=== PATIENT | female | born 1995 | race Caucasian/White ===

== ENCOUNTER 2023-11-11 16:28 | Outpatient (CLI) | payer OTHER, SELFPAY ==
--- NOTE | 2023-11-12 14:38 | PC.OBNST ---
NST Note NST Note Start: 11/11/23 16:42 Freq: ONCE Status: Discharge Protocol: Document 11/11/23 17:45 [facility]NA (Rec: 11/11/23 18:10 [facility]NA Desktop) NST Note 1 Para (# of births) 0 EDC 01/23/24 Gestational Age In Weeks & Days 29 Weeks & 4 Days Patient Presented with Complaint(s) of Decreased movement Reactive Yes Appropriate for Gestational Age Yes RN Rao Meyer RN Date 11/11/23 Reactive Yes Appropriate for Gestational Age Yes RN Brooklyn Rivera RN Date 11/11/23 OB NST charge Yes Complete NST Note via Write Note Yes The provider's electronic signature indicates the NST is reactive/appropriate for gestational age. *Note to provider: If an addendum is required, open the patient's chart and click on the note under the Nurse/Allied Health tab.
== END 2023-11-11 17:45 | disposition home or self-care (01) ==
LOC: OB OUT 16:28 → OB 16:29
PROVIDERS: PCP Family Medicine; Visit Provider Surgery
DX: O36.8130 Decreased fetal movements, third trimester, not applicable or unspecified (principal); Z3A.29 29 weeks gestation of pregnancy
CPT/HCPCS: 59025; G0463

== ENCOUNTER 2024-01-04 06:40 | Inpatient (IN) | payer OTHER, SELFPAY ==
[2024-01-04] VITALS (63 sets, daily range): BP systolic 110–162; BP diastolic 65–86; PULSE 80–148; RESP 16–25; TEMP 36.6–37; O2SAT 88–100; BMI 33.5
[2024-01-04 06:32] LABS: Amnisure Rom* POSITIVE
[2024-01-04 08:16] LABS: Basophils Percent Auto 0.4 % (0.0-3.0); Eosinophils Percent Auto 1.4 % (0.0-7.0); Hematocrit 38.8 % (33.0-51.0); Hemoglobin* 13.1 gm/dL (12.0-16.0); Immature Granulocytes Pct Auto 3.5 %; Lymphocytes Percent Auto 16.5 % (20-44); Mean Corpuscular HGB Conc 34 gm/dL (32-36); Mean Corpuscular Hemoglobin 32 pg (26-34); Mean Corpuscular Volume 96 fL (80-100); Monocytes Percent Auto 5.7 % (0.0-11.0); Neutrophils Percent Auto 72.5 % (42.0-72.0); Platelet Count* 254 K/uL (140-440); RDW Coefficient of Variation % 12.6 % (11.5-15.5); Red Blood Count 4.05 m/uL (4.00-5.20); White Blood Count* 13.27 K/uL (4.50-11.00)
[2024-01-04 08:42] LABS: Slide Review Reflex No
--- NOTE | 2024-01-04 09:22 | P.OBHP_ITS ---
OB - H&P: HPI Labor/Induction History of Present Illness Time Seen by Provider: 09:45 Date Seen: 01/04/24 Chief Complaint: The patient is a 28 year old 1 para 0 at 37 2/7 weeks gestation by LMP c/w 8wk US, who presents with SROM. Chief complaint: Maternity : 1 Para: 0 Date of last menstrual period: 04/18/23 Estimated date of delivery: 01/23/24 Gestational age based on last menstrual period: 37 Narrative: Tigist Mancini is a 28 year old 1 para 0 at 37 2/7 weeks gestation by LMP c/w 8wk US, who presents with SROM. SROM with clear fluid occurred at home around 0420am today. She reports she started amita about 45 minutes later. She reports feeling well otherwise, no recent illness. No headaches or vision changes. She reports has been uncomplicated so far. She presented to [facility] 540am and cervix checked by RN 1.5/50/-3. Initially contractions were every 4-5 minutes on monitor, then increased to every 1-3 minutes and then spread out to 9+ minutes apart. History of Present Dating criteria: based on LMP care: good care Labs Blood type: O (+) positive Rubella: immune RPR/VDLR: nonreactive GBS status: negative HBsAG: negative Meds Home Medications and Allergies Home Medications ?Medication ?Instructions ?Recorded ?Confirmed ?Type albuterol sulfate 90 mcg/actuation 1 - 2 puff inhalation Q4H PRN 01/04/24 01/04/24 History aerosol inhaler (Ventolin HFA) wheezing cetirizine 10 mg tablet (24Hour 10 mg PO DAILY PRN 01/04/24 01/04/24 History Allergy) escitalopram oxalate 10 mg tablet 10 mg PO DAILY 01/04/24 01/04/24 History labetalol 100 mg tablet 100 mg PO BID 01/04/24 01/04/24 History vitamin no.167-folic acid tab PO 01/04/24 History 400 mcg-dha 25 mg chewable tablet (One-A-Day ) Allergies Allergy/AdvReac Type Severity Reaction Status Date / Time Sulfa (Sulfonamide Allergy Intermediate Abdominal Verified 01/04/24 05:58 Antibiotics) Pain OB - H&P: Exam Physical Exam: Vital signs: Temp Pulse Resp BP Pulse Ox 98 F 87 16 138/72 98 01/04/24 08:29 01/04/24 08:29 01/04/24 08:29 01/04/24 08:29 01/04/24 07:24 Constitutional: Constitutional: no acute distress and cooperative Routine HEENT Exam: Head: Present atraumatic Eye: Present normal appearance ENT: Present mucous membranes moist Routine Respiratory Exam: Respiratory: Present CTA bilaterally Routine Cardiovascular Exam: Cardiovascular: RRR Routine Exam: Perineum Description: Normal Detailed Labor and Delivery Exam: Patient Gravid: Yes Dilation (cm): 2 Effacement (%): 60 Cervix position: mid Consistency: medium Fetus (Single): Station: -1 Amniotic Membrane Status: SROM Amniotic Membrane Fluid Description: Clear Heart Rate Baseline: 140 Monitor Accelerations: Present Monitor Decelerations: None Long-Term Variability: Moderate (6-25) Routine Extremities Exam: Extremities: Absent pedal edema OB - Results Labs Labs: Short CBC 01/04/24 Range/Units 08:10 WBC 13.27 H (4.50-11.00) K/uL Hgb 13.1 (12.0-16.0) gm/dL Hct 38.8 (33.0-51.0) % Plt Count 254 (140-440) K/uL OB - Problem Based A/P Additional Plan (1) Term : Status: Acute (2) SROM (spontaneous rupture of membranes): Status: Acute Plan Cervix remains unfavorable and contractions spreading out now 5+ hours since SROM. Will give dose of cytotec. Discussed with pt, all ?'s answered. Known GBS negative. Delivery/Labor/Induction Plan Induction method: per misoprostol protocol
[2024-01-04] MEDS: miSOPROStoL 25 MCG/0.25 TABLET PO (10:00)
[2024-01-04] MEDS: CALCIUM CARBONATE 500 MG CHEW PO (12:11)
[2024-01-04] MEDS: LACTATED RINGERS 1000 ML 1,000 ML 999 ML IV (12:19)
[2024-01-04] MEDS: OXYTOCIN 30 unit/500 ML in NS 30 UNIT/500 ML BAG 300 UNIT IVPB (14:46)
--- NOTE | 2024-01-04 16:05 | W.PM.VAGDEL1 ---
Procedure Delivery date: 01/04/24 Procedure Done: only Procedure Details: The patient is a 28 year-old admitted on 01/04/24 at 37 Weeks, 2 Days gestation for SROM.? Cervical exam on admission was 1.5 cm/50 % effaced/-3 station with membranes ruptured in vertex presentation.? Contractions were every 4-6 minutes.? heart rate demonstrated baseline 150 bpm with moderate variability, + accelerations, - decelerations; a category 1 tracing.? SROM occurred at 0420 with clear fluid. She presented to Center 0540 and initially contractions were increasing in frequency but then spread out to q9min so she was given cytotec x 1 oral dose at 10am. ? Labor Analgesia:? None ? Pitocin:? No ? Labor onset:? 1145 ? Complete:? 1324 ? Pushing:? 1340 ? heart tones during second stage were 120's with deep variable decelerations with pushing. Resolved between contractions. ? At 1436 a viable male delivered in vertex presentation over intact perineum via spontaneous vaginal delivery.? Infant was placed on maternal abdomen.? Cord was clamped and cut after a 30-60 second delay.? Nose and mouth were bulb suctioned.? weight 7#6oz.? 7 at 1 minute and 9 at 5 minutes.? Shoulder dystocia: no.? Nuchal cord: no. ? Active management placenta was performed. She had gush of blood with delivery of placenta which quickly improved as placenta delivered. Placenta delivered spontaneously and complete at 1443 with a 3 vessel cord. She did have further bleeding noted from laceration which became hemostatic with repair as below. ? Mother and infant were stable after delivery. ? Lacerations:? 2nd degree midline perineal, repaired with 3-0 Vicryl. Right labial laceration with extension into vagina, repaired with 3-0 Vicryl. ? Blood loss: 450 mL. Blood loss measurement type: QBL ? Sponge and needles counts are correct. Intrapartal Events: Precipitous Labor <3 Hrs Delivery monitor: external FHT and internal FHT Route of delivery: Laceration description: Perineal - 2nd Degree (right labial) Delivery repair: Vicryl Estimated blood loss (mL): 450 Anesthesia type: None Gender: Male presentation: vertex Placental Delivery Description: Spontaneous Cord Description: 3 Vessels
[2024-01-04 17:08] LABS: Hematocrit 38.8 % (33.0-51.0); Hemoglobin* 13.4 gm/dL (12.0-16.0); Mean Corpuscular HGB Conc 35 gm/dL (32-36); Mean Corpuscular Hemoglobin 33 pg (26-34); Mean Corpuscular Volume 95 fL (80-100); Platelet Count* 271 K/uL (140-440)
[2024-01-04] MEDS: IBUPROFEN 600 MG TABLET PO ×2 (17:16→23:51)
[2024-01-04 17:22] LABS: Alanine Aminotransferase* 21 U/L (4-35); Aspartate Amino Transferase* 34 U/L (12-35); Blood Urea Nitrogen* 4 mg/dL (5-24); Creatinine* 0.4 mg/dL (0.5-1.5); Est. Creatinine Clearance* 214.92; Estimated Glomerular Filt Rate 136 ml/min
[2024-01-04 17:24] LABS: Slide Review Reflex Yes; White Blood Count* 28.18 K/uL (4.50-11.00)
[2024-01-04 17:25] LABS: Slide Review Acceptable Review (Acceptable)
[2024-01-04] MEDS: LABETALOL HCL 100 MG TABLET PO (18:28)
[2024-01-04] MEDS: ACETAMINOPHEN 500 MG TABLET 1000 MG PO (20:32)
[2024-01-05] VITALS (22 sets, daily range): BP systolic 106–138; BP diastolic 68–80; PULSE 90–126; RESP 16–20; TEMP 36.5–37.3; O2SAT 98–100
[2024-01-05 00:49] LABS: Hemoglobin* 11.2 gm/dL (12.0-16.0)
[2024-01-05] MEDS: LANOLIN CREAM 1 APPLIC TOPICAL ×2 (01:07→21:46)
[2024-01-05 01:33] LABS: D Dimer Quantitative* 2.41 ug/ml (0.00-0.50)
[2024-01-05 01:39] LABS: NT Pro B Type NatriureticPept* < 20 pg/mL
--- NOTE | 2024-01-05 01:58 | CRLHL7_ITS ---
For Patients: As a result of the 21st Century Cures Act, medical imaging exams and procedure reports are released immediately into your electronic medical record. You may view this report before your referring provider. If you have questions, please contact your health care provider. INDICATION: Shortness of breath. TECHNIQUE: CT chest PE was acquired with 95 cc Isovue 370 IV contrast. COMPARISON: None. FINDINGS: Heart and vasculature: Contrast opacification of the pulmonary arterial tree is adequate. No sign of pulmonary embolism. Heart size is normal. Thoracic aorta and pulmonary artery are normal in caliber. Lungs and pleura: 3 mm right middle lobe nodule (series 6, image 111). No acute infiltrates. No pleural effusions, pleural thickening, or pneumothorax. Lymph nodes/mediastinum: No mediastinal, hilar, or axillary adenopathy. Thyroid gland is unremarkable. Chest wall: No masses. Upper abdomen: No acute findings. Bones: Unremarkable for age. IMPRESSION: 1. No evidence of pulmonary embolism or acute pulmonary process. 2. 3 mm right middle lobe nodule, of doubtful clinical significance. Please see below for follow-up guidelines. SOCIETY GUIDELINES - SOLID NODULES: SINGLE LOW RISK - nodule less than 6 mm: No routine follow-up. - nodule 6-8 mm: CT at 6-12 months, then consider CT at 18-24 months. - nodule greater than 8 mm: Consider CT at 3 months, PET/CT or tissue sampling. SINGLE HIGH RISK - nodule less than 6 mm: Optional CT at 12 months. - nodule 6-8 mm: CT at 6-12 months, then CT at 18-24 months. - nodule greater than 8 mm: Consider CT at 3 months, PET/CT or tissue sampling. MULTIPLE LOW RISK - nodule less than 6 mm: No routine follow-up. - nodule 6-8 mm: CT at 3-6 months, then consider CT at 18-24 months. - nodule greater than 8 mm: CT at 3-6 months, then consider CT at 18-24 months. MULTIPLE HIGH RISK - nodule less than 6 mm: Optional CT at 12 months. - nodule 6-8 mm: CT at 3-6 months, then at 18-24 months. - nodule greater than 8 mm: CT at 3-6 months, then at 18-24 months. Please note that all CT scans at this facility use dose modulation, iterative reconstruction, and/or weight-based dosing when appropriate to reduce radiation dose to as low as reasonably achievable. Dictated by Sven Lambert MD @ 01/05/2024 3:03:15 AM (Electronically Signed)
--- NOTE | 2024-01-05 03:25 | PM.OBPNVD1 ---
OB - PN:Subj Subjective Time Seen by Provider: 03:25 Date Seen: 01/05/24 Interval history: RN notified me at 10:16pm that pts heart rate had been elevated around 110-115 and pt noted some slight dizziness and shortness of breath with ambulation. pt tells me overall she feels tired/weak. Sitting/laying in bed she feels fine. She reports earlier this evening when got up to bathroom felt little dizzy. Not having that now and just got up to bathroom and did not have any dizziness. she does notice 'mild' 'windedness' with activity intermittently. No headaches, no chest pain, no palpitations, no abdominal pain. Reports some rectal pain with certain movements/position changes in bed but fine when laying still and okay once up and walking. No personal or FH blood clot. pt tells me her left leg was slightly swollen compared to right all OB - PN: Obj Exam Physical Exam: Vital signs: Temp Pulse Resp BP Pulse Ox O2 Del Method 98.4 F 103 H 20 120/74 98 Room Air 01/05/24 00:46 01/05/24 00:46 01/05/24 00:46 01/05/24 00:46 01/05/24 00:46 01/05/24 00:46 Constitutional: Constitutional: no acute distress and cooperative Routine HEENT Exam: Head: Present normal inspection Eye: Present normal appearance ENT: Present mucous membranes moist Routine Respiratory Exam: Respiratory: Present CTA bilaterally; Absent crackles or wheezes Comments: good air movement Routine Cardiovascular Exam: Cardiovascular: Present RRR Routine Abdominal Exam: Fundus: Present firm (below umbilicus) Routine Exam: Comments: External vaginal exam with appropriate edema noted along labia/perineal area. I gently palpated perineal/vaginal tear and internal vaginal side campbell with no abnormal tenderness and no evidence hematoma. Routine Extremities Exam: Comments: no pitting edema. Calfs/LE's nttp. OB - PN: Obj Data Labs Labs: Laboratory Results - last 24 hr 01/04/24 01/04/24 01/04/24 05:50 08:10 17:01 WBC 13.27 H 28.18 H* RBC 4.05 4.10 Hgb 13.1 13.4 Hct 38.8 38.8 MCV 96 95 MCH 32 33 MCHC 34 35 RDW Coeff of Avinash 12.6 Plt Count 254 271 Neut % (Auto) 72.5 H Lymph % (Auto) 16.5 L [place] % (Auto) 5.7 Eos % (Auto) 1.4 Baso % (Auto) 0.4 Neut # (Auto) 9.60 H Lymph # (Auto) 2.20 [place] # (Auto) 0.80 Eos # (Auto) 0.20 Baso # (Auto) 0.10 Abs Immat Gran (auto) 0.50 H Imm/Tot Granulo (auto) 3.5 Diff Slide Review Acceptable Review D-Dimer Quant (PE/DVT) BUN 4 L Creatinine 0.4 L Estimated Creat Clear 214.92 Estimated GFR 136 AST 34 ALT 21 NT-Pro-B Natriuret Pep Membrane Rupture POSITIVE Blood Type O Positive Antibody Screen NEGATIVE 01/05/24 01/05/24 00:45 01:05 WBC RBC Hgb 11.2 L Hct MCV MCH MCHC RDW Coeff of Avinash Plt Count Neut % (Auto) Lymph % (Auto) [place] % (Auto) Eos % (Auto) Baso % (Auto) Neut # (Auto) Lymph # (Auto) [place] # (Auto) Eos # (Auto) Baso # (Auto) Abs Immat Gran (auto) Imm/Tot Granulo (auto) Diff Slide Review D-Dimer Quant (PE/DVT) 2.41 H BUN Creatinine Estimated Creat Clear Estimated GFR AST ALT NT-Pro-B Natriuret Pep < 20 Membrane Rupture Blood Type Antibody Screen Imaging CT scan - chest: Radiologist's impression: 1. No evidence PE or acute pulmonary process. 2. 3mm right middle lobe nodule, of doubtful clinical significance. OB - PN: A/P Delivery Assessment and Plan (1) Term : Status: Acute (2) SROM (spontaneous rupture of membranes): Status: Acute (3) Sinus tachycardia: Problem details: HR 110-120's Status: Acute Assessment and Plan: Sinus tachycarda -on chart review, pulse was 80-90's til about 4pm then increased to 92-111 and then further to 100-125. Initial bp's were high (see below) but now bp's wnl and remainder vitals wnl. Review of her record shows pulse typically in 90's at clinic for care, one time was 108 in clinic. Currently on pulseox after testing complete as I am talking with her her pulse is 92-101. -differential diagnosis reviewed with pt. Needed to rule out more serious etiologies such as acute blood loss anemia, cardiomyopathy, PE. These have been ruled out based on above testing results which is reassuring. -will plan to monitor for now. Pulse is currently improved while I am talking with her. Discussed with her if sxs worsening, new sxs, worsening tachycardia, we would rec further evaluation. For now, we can monitor -Of note, she is on betablocker which she takes chronically for migraine prophylaxis and was restarted at 6:30pm 01/05/24 (4) hypertension: Problem details: BP's after delivery 130-150's/80-90's, did go up to 160's but not sustained and came down on own Status: Acute Assessment and Plan: had elevated BP's. Preeclamptic labs wnl. She is on labetalol at home for migraine prophylaxis and this was restarted at 6:30pm on 01/04/24, prior to restarting BP had come down to 130/72 on its own. Will continue labetalol at her home migraine prophylaxis dosing of 100mg bid. Monitor bp and adjust as needed. Plan Comments: See above regarding tachycardia and bp. otherwise plan routine care discussed with pt will have her stay until tomorrow due to these concerns for further monitoring EKG Interpretation EKG Data Attestation: I personally reviewed and interpreted this ECG as follows: Date of EKG Tracin01/05/24 EKG interpretation date: 01/05/24 EKG interpretation time: 00:45 Prior EKG tracings: not available for review Interpretation: Two EKG's were performed by RN. Initial EKG at 0:39:57 was NSR at 96bpm. Intervals with RI 102ms, QRS 80ms, QTc 434ms. No Q waves. T wave nonspecific lead III. 2nd EKG at 0:40:18 with sinus tachycardia at 102bpm. Intervals RI 96ms, QRS 80ms, QTc 448ms. No Q waves. T wave inversion lead III.
[2024-01-05] MEDS: ACETAMINOPHEN 500 MG TABLET 1000 MG PO ×4 (03:44→21:45)
[2024-01-05 06:36] LABS: Hemoglobin* 10.4 gm/dL (12.0-16.0)
[2024-01-05] MEDS: IBUPROFEN 600 MG TABLET PO ×3 (06:41→18:20)
[2024-01-05] MEDS: DOCUSATE SODIUM 100 MG CAPSULE PO (10:14)
--- NOTE | 2024-01-05 14:22 | P.OBPN_ITS ---
OB - PN:Subj Subjective Time Seen by Provider: 10:00 Date Seen: 01/05/24 Interval history: Patient noted to be tachycardic to 1teens-120 overnight. Reported SOB and dizziness. Labs showed mild anemia, Cr and pro-BNP WNL. EKG showed sinus tachycardia. D dimer elevated > CT PE run negative for PE. Hgb 10.4 at 0625 this AM. Narrative: Today patient reports that she is feeling tired, but otherwise well. SOB and diz ziness have improved, though admits she hasn't been up much. Body is a little sore. Bleeding is moderate; same as a heavy period. Perineal pain is well- controlled. Passing flatus, small BM. going ok. OB - PN: Obj Exam Physical Exam: Vital signs: Temp Pulse Resp BP Pulse Ox O2 Del Method 98.0 F 104 H 17 121/79 98 Room Air 01/05/24 12:15 01/05/24 12:15 01/05/24 12:15 01/05/24 12:15 01/05/24 12:15 01/05/24 12:15 Narrative: General appearance: Well-appearing adult female. Alert, oriented and appropriate. Sitting up in hospital bed. HEENT: EOMI, no conjunctival injection or discharge. MMM. Neck: Supple. CV: RRR, no rubs, murmurs or extra heart sounds. Pulm: CTAB, no wheezes, rales or rhonchi. Abdomen: Soft, non-tender. Fundus palpated 2 cm below the umbilicus. MSK: Moving all extremities. Ext: Warm and well-perfused. Trace LE edema. Skin: No rashes appreciated over exposed skin. Neuro: Grossly normal strength and sensation. No focal deficits. Psych: Normal affect. OB - PN: Obj Data Labs Labs: Laboratory Results - last 24 hr 01/04/24 01/05/24 01/05/24 17:01 00:45 01:05 WBC 28.18 H* RBC 4.10 Hgb 13.4 11.2 L Hct 38.8 MCV 95 MCH 33 MCHC 35 Plt Count 271 Diff Slide Review Acceptable Review D-Dimer Quant (PE/DVT) 2.41 H BUN 4 L Creatinine 0.4 L Estimated Creat Clear 214.92 Estimated GFR 136 AST 34 ALT 21 NT-Pro-B Natriuret Pep < 20 01/05/24 06:25 WBC RBC Hgb 10.4 L Hct MCV MCH MCHC Plt Count Diff Slide Review D-Dimer Quant (PE/DVT) BUN Creatinine Estimated Creat Clear Estimated GFR AST ALT NT-Pro-B Natriuret Pep OB - PN: A/P Delivery Assessment and Plan (1) Term : Status: Acute Assessment and Plan: - Normal post- cares - Anticipate discharge tomorrow 01/06/24 (2) SROM (spontaneous rupture of membranes): Status: Acute (3) Sinus tachycardia: Problem details: HR 110-120's. EKG sinus tachycardia. CT PE run negative. BMP, pro-BNP WNL. Hgb 13.4 > 10.4 Status: Acute Assessment and Plan: - Favor related to relative anemia following delivery given otherwise negative work-up - Recheck Hgb in AM (4) hypertension: Problem details: BP's after delivery 130-150's/80-90's, did go up to 160's but not sustained and came down on own Status: Acute
[2024-01-06] MEDS: IBUPROFEN 600 MG TABLET PO ×3 (00:26→17:51)
[2024-01-06 00:27] VITALS: BP 120/69; PULSE 98; RESP 12; TEMP 36.6; O2SAT 97
[2024-01-06] MEDS: ACETAMINOPHEN 500 MG TABLET 1000 MG PO (04:50)
[2024-01-06 04:54] VITALS: BP 130/74; PULSE 74; RESP 16; TEMP 36.7; O2SAT 98
[2024-01-06 07:30] LABS: Hemoglobin* 9.9 gm/dL (12.0-16.0)
[2024-01-06 08:23] VITALS: BP 120/70; PULSE 98; RESP 16; TEMP 36.5; O2SAT 97
[2024-01-06] MEDS: DOCUSATE SODIUM 100 MG CAPSULE PO (10:08)
[2024-01-06] MEDS: LABETALOL HCL 100 MG TABLET PO (10:10)
[2024-01-06 12:39] VITALS: BP 113/69; PULSE 103; PULSE 16; RESP 16; TEMP 36.6; O2SAT 98
[2024-01-06 14:26] LABS: Rapid Plasma Reagin (RPR) Non Reactive (Non Reactive)
--- NOTE | 2024-01-06 15:03 | P.DS_ITS ---
DS: Providers Provider Time Seen by Provider: 07:00 Date Seen: 01/06/24 Date of admission: 01/04/24 06:40 Primary care physician: Jen Bee MD Admitting Clinician: Brandee Liu DO Attending Physician on discharge: Ximena Garza MD Date of Discharge: 01/06/24 DS: Diagnosis Discharge Diagnosis (1) (normal spontaneous vaginal delivery): Status: Acute Problem details: Patient had after spontaneous labor/SROM (2) hypertension: Status: Acute Problem details: BP's after delivery 130-150's/80-90's, did go up to 160's but not sustained and came down on own. BP have been within normal limits in last 12 hours prior to discharge. (3) Sinus tachycardia: Status: Acute Problem details: HR 110-120's. EKG sinus tachycardia. CT PE run negative. BMP, pro-BNP WNL. Hgb 13.4 > 10.4 >9.9. Tachycardia resolved prior to discharge Exam Const: Vital Signs, click to edit/add: Vital Signs - 24 hr 01/05/24 15:29 01/05/24 17:29 01/05/24 21:53 Temperature 97.7 F 99.1 F Pulse Rate [Pulse Oximeter] 102 H 106 H 109 H Pulse Rate [Right] Respiratory Rate 17 18 16 Blood Pressure [Le ft Arm] 122/70 115/70 126/77 Pulse Oximetry 98 98 Oxygen Delivery Me thod Room Air Room Air 01/06/24 00:27 01/06/24 04:54 01/06/24 08:23 Temperature 97.9 F 98.1 F 97.7 F Pulse Rate [Pulse Oximeter] 98 74 98 Pulse Rate [Right] Respiratory Rate 12 16 16 Blood Pressure [Le ft Arm] 120/69 130/74 120/70 Pulse Oximetry 97 98 97 Oxygen Delivery Me thod Room Air Room Air Room Air 01/06/24 12:39 Temperature 97.9 F Pulse Rate [Pulse Oximeter] 103 H Pulse Rate [Right] 16 L Respiratory Rate 16 Blood Pressure [Le ft Arm] 113/69 Pulse Oximetry 98 Oxygen Delivery Me thod Room Air Common normals: no apparent distress, oriented x3 and alert Orientation/consciousness: Yes awake HENMT: Common normals: normocephalic Head and scalp: normocephalic Neck & C-Spine: Common normals: full ROM and no JVD Resp: Common normals: normal respiratory effort, no retractions and clear to auscultation bilaterally Auscultation: clear to auscultation bilaterally Cardio: Common normals: no JVD, regular rate, regular rhythm, S1 normal heart sound, S2 normal heart sound and no murmurs Rate: regular rate Rhythm: regular rhythm Heart sounds: S1 normal and S2 normal GI: Common normals: Normal to inspection, nondistended, normoactive bowel sounds present Extremity: Common normals: normal to inspection and full ROM Neuro: Common normals: oriented x3 Sensorium/orientation: awake and alert Skin: Common normals: no rashes or lesions noted General skin exam: no rashes or lesions noted OB - DS: Summary Hospital Course Hospital Course: The patient is a 28 year old G 1 P 0 at 37 weeks gestation that was admitted to the Center on 01/04/24 for labor. She had an uncomplicated vaginal delivery. She delivered a viable male . She is breast feeding. Patient's course was complicated by maternal tachycardia and hypertension. Is on labetalol at baseline but this is for migraine prevention. She received BNP (normal), CT PE study (normal) and trended hemoglobin (Dropped to 9.9). Fortunately, her tachycardia resolved and patient felt much better on day of discharge. Her bp has been within normal limits on her home Labetalol. Unclear if she has a component of hypertension or not. Peripartum Data delivery method: Vaginal Laceration description: Vaginal - 2nd Degree complications: other (Maternal tachycardia and hypertension) Gender: Male Infant Discharge Plan: Home Status at Discharge Functional status at discharge: independent ambulation Overall status at discharge: patient is back to baseline Time Spent with Patient Time attestation: Total time spent providing and/or coordinating discharge services: Time spent: Greater than 30 minutes Discharge Plan Discharge Disposition: Home, Self-Care Date of Admission: 01/04/24 06:40 Attending Provider on Discharge: Ximena Garza Primary Care Provider: Jen Bee Condition: Improved Anticipated Discharge Date/Time: 01/06/24 14:59 Discharge Medications: Continued albuterol sulfate [Ventolin HFA] 90 mcg/actuation HFA aerosol inhaler 1 - 2 puff INHALATION Q4H PRN (Reason: wheezing) cetirizine [24Hour Allergy] 10 mg tablet 10 mg PO DAILY PRN labetalol 100 mg tablet 100 mg PO BID escitalopram oxalate 10 mg tablet 10 mg PO DAILY One-A-Day 400 mcg- 25 mg tablet,chewable 1 tab PO DAILY Discharge Orders: Discharge Order (Routine); Ordered 01/06/24 Ordered By: Ximena Garza Patient Education: OB Vaginal/Breast Feeding Activity Level: No Restrictions Activity Detail: Pelvic rest x 6 weeks. Nothing in the vagina Discharge Diet: Regular Follow Up Appointments: Jen Bee MD [Primary Care Provider] - [facility] Discharge Comments: Follow up for Blood pressure check at scheduled appointment Friday.
[2024-01-06 17:55] VITALS: BP 125/77; PULSE 96; RESP 16; TEMP 36.5; O2SAT 99
== END 2024-01-06 18:00 | disposition home or self-care (01) | DRG 807 ==
LOC: OB OUT 06:56 → OB 06:56
PROVIDERS: Family Medicine; Admitting Provider Family Medicine; PCP Family Medicine; Visit Provider Family Medicine
DX: O70.1 Second degree perineal laceration during delivery (principal); Z37.0 Single live birth; O62.3 Precipitate labor; O16.5 Unspecified maternal hypertension, complicating the puerperium; O99.893 Other specified diseases and conditions complicating puerperium; R00.0 Tachycardia, unspecified; R06.02 Shortness of breath; R42 Dizziness and giddiness; Z3A.37 37 weeks gestation of pregnancy; O90.81 Anemia of the puerperium; D64.9 Anemia, unspecified
CPT/HCPCS: 36415; 59200; 71275; 82565; 83880; 84112; 84450; 84460; 84520; 85018; 85025; 85027; 85379; 86592; 86850; 86900; 86901; 93005; 93010; A9270; J2371; J7120; Q9967

== ENCOUNTER 2024-01-11 22:28 | Inpatient (IN) | payer OTHER, SELFPAY ==
[2024-01-11] VITALS (30 sets, daily range): BP systolic 128–152; BP diastolic 69–89; PULSE 97–118; RESP 18–20; TEMP 36.9–38.4; O2SAT 92–100
[2024-01-11 17:22] LABS: Hematocrit 32.4 % (33.0-51.0); Hemoglobin* 10.7 gm/dL (12.0-16.0); Mean Corpuscular HGB Conc 33 gm/dL (32-36); Mean Corpuscular Hemoglobin 32 pg (26-34); Mean Corpuscular Volume 98 fL (80-100); Platelet Count* 356 K/uL (140-440); Red Blood Count 3.32 m/uL (4.00-5.20); White Blood Count* 13.49 K/uL (4.50-11.00)
[2024-01-11 17:30] LABS: Slide Review Reflex No
--- NOTE | 2024-01-11 17:33 | P.OBLDTN_ITS ---
OB - Triage/Final Diagnosis Visit Information Date Seen: 01/11/24 Date of evaluation: 01/11/24 Narrative: The patient is a 28 year old 1 para 1 presents on day #7 after with fever, headaches and body aches. course complicated by hypertension and tachycardia. She had a thorough evaluation include negative CT PE (elevated D-dimer) and normal EKG. She was restarted on labetalol 100mg BID for migraine prophylaxis as well as hypertension. Patient has noticed headaches over the last three days primarily at night, not resolved with Tylenol. Seem to be different from her migraines. She woke up today with headache and body aches. She is breast feeding. Denies breast pain or engorgement. Some nipple discomfort. She denies significant pelvic or suprapubic pain. She states lochia/bleeding has lessoned but has stayed constant over the last 1-2 days. She does have some sharp pains in the vagina intermittently. She had perineal laceration and right labial lacerations repaired with vicryl. She denies purulent discharge. She was GBS negative. No history of abdominal surgeries. No cough, sore throat, congestion or sick contacts. Evaluation Vital signs: Vital Signs - 24 hr 01/11/24 16:56 01/11/24 17:01 01/11/24 17:02 Pulse Rate Blood Pressure Pulse Oximetry 100 98 92 01/11/24 17:03 01/11/24 17:06 01/11/24 17:11 Pulse Rate 105 H Blood Pressure 148/83 H Pulse Oximetry 99 99 01/11/24 17:26 Pulse Rate 111 H Blood Pressure 136/86 Pulse Oximetry Comments: Gen: tearful, diaphoretic CV: RRR, no murmurs Resp: Regular rate, normal effort, clear to auscultation in all lung ayala Abdo: overall soft, some discomfort in deep suprapubic area (L>R) : lochia present heavy, laceration repairs healing well, no purulence, tender to the touch Ext: 1-2+ pitting edema in legs bilaterally (L>R). Some posterior calf tenderness. Trace edema in UE as well. Final Diagnosis (1) hypertension: Status: Acute Problem details: BP 136-152/71-88. Elevation in ALT 54. Headaches and LE edema present. Diagnosis of pre-eclampsia without severe features. Labetalol increased to 200mg BID. Home BP checks. (2) fever: Status: Acute Problem details: Unclear source. WBC wnl for period though ANC has increased since 01/03. Fevers have improved. Tmax 101.7F in urgent care. Covid/flu/rsv negative. Differential includes endometritis, laceration infection, retained products of conception, DVT, pyelonephritis. UA overall normal. Pelvic US with thickened heterogenous endometrium with multilobulated, mildly vascular, echogenic debris which could reflect clot versus retained products of conception. Plan to consult MIS[employer]LE [employer]ILITIES REPAIRER for possible intervention. (3) Preeclampsia in period: Status: Acute
[2024-01-11 17:46] LABS: Alanine Aminotransferase* 54 U/L (4-35); Aspartate Amino Transferase* 33 U/L (12-35); Blood Urea Nitrogen* 8 mg/dL (5-24); Creatinine* 0.6 mg/dL (0.5-1.5); Estimated Glomerular Filt Rate 124 ml/min
[2024-01-11 18:13] LABS: PCR FLU A Negative PCR FLU A (Negative); PCR FLU B Negative PCR FLU B (Negative); PCR RSV Negative PCR RSV (Negative); SARS PCR* Negative SARS-CoV-2 (Negative)
--- NOTE | 2024-01-11 18:18 | CRLHL7_ITS ---
For Patients: As a result of the Cures Act, medical imaging exams and procedure reports are released immediately into your electronic medical record. You may view this report before your referring provider. If you have questions, please contact your health care provider. INDICATION: Fever. Recent delivery. Concern for retained products. TECHNIQUE: Ultrasound pelvis transabdominal with grayscale and color Doppler interrogation. COMPARISON: None. FINDINGS: Uterus: 13.3 x 8.7 x 10.5 cm. No suspicious myometrial abnormality. Endometrium: Thickened, heterogeneous endometrium containing multilobulated echogenic debris in addition to mildly increased vascularity on color Doppler interrogation. The bilateral ovaries are not identified on this examination. Cul-de-sac: No free fluid. IMPRESSION: Thickened heterogeneous endometrium with multilobulated, mildly vascular, echogenic debris which may reflect clot versus retained products of conception. Dictated by Geovanni Wylie MD @ 01/11/2024 9:37:22 PM (Electronically Signed)
[2024-01-11 18:32] LABS: NT Pro B Type NatriureticPept* 70 pg/mL
--- NOTE | 2024-01-11 18:34 | CRLHL7_ITS ---
For Patients: As a result of the Century Cures Act, medical imaging exams and procedure reports are released immediately into your electronic medical record. You may view this report before your referring provider. If you have questions, please contact your health care provider. INDICATION: Fever, Edema, Fever lower extremeity edema TECHNIQUE: Ultrasound venous duplex bilateral lower extremities. Real-time villarreal-scale (B mode 2D), color Doppler, and spectral Doppler imaging were performed with compression and augmentation. COMPARISON: None FINDINGS: Deep vein: The bilateral common femoral, femoral, popliteal, and visualized calf veins are fully compressible, demonstrate normal color flow, and normal response to mechanical augmentation. The Duplex Doppler waveforms are normal in appearance. Superficial vein: The visualized greater saphenous and superficial veins of the leg and calf are unremarkable. Soft tissue: No masses or cysts are identified. No adenopathy is seen. IMPRESSION: 1. No sonographic evidence of acute deep venous thrombosis seen in either lower extremities. Dictated by: Adryan Palacios MD @ 01/11/2024 21:13:27 (Electronically Signed)
[2024-01-11] MEDS: LABETALOL HCL 100 MG TABLET 200 MG PO (18:52)
[2024-01-11 19:18] LABS: Basophils Absolute Auto 0.05 K/uL (0.00-0.30); Basophils Percent Auto 0.4 % (0.0-3.0); Eosinophils Absolute Auto 0.21 K/uL (0.00-0.50); Eosinophils Percent Auto 1.6 % (0.0-7.0); Immature Granulocytes Abs Auto 0.21 K/uL (0.00-0.30); Immature Granulocytes Pct Auto 1.6 %; Lymphocytes Percent Auto 7.6 % (20-44); Monocytes Percent Auto 5.6 % (0.0-11.0); Neutrophils Percent Auto 83.2 % (42.0-72.0); RDW Coefficient of Variation % 12.8 % (11.5-15.5)
[2024-01-11 20:05] LABS: Appearance Urine Clear (Clear); Bilirubin Urine Negative (Negative); Blood Urine Trace-lysed (Negative); Color Urine Yellow (Yellow); Glucose Urine Negative (Negative); Ketones Urine Negative (Negative); Leukocyte Esterase Urine Trace (Negative); Nitrite Urine Negative (Negative); Protein Urine Negative (Negative); Specific Gravity Urine 1.015 (1.000-1.030); Urobilinogen Urine 0.2 (0.2-1.0); pH Urine 7.5 (5.0-8.5)
[2024-01-11 20:16] LABS: RBC Urine 0-2 (0-2); Squamous Epithelial Cell Urine Few (None-Few)
[2024-01-11] MEDS: ACETAMINOPHEN 500 MG TABLET 1000 MG PO (20:46)
--- NOTE | 2024-01-11 22:47 | PM.GYNHPNOR ---
[employer] - H&P:HPI Medical History of Present Illness Date Seen: 01/11/24 Reason for admission: other ( endometritis) Narrative: Tigist Mancini is a 28 year old 1 para 1 presents on day #7 after with fever, headaches and body aches. course complicated by hypertension and tachycardia. She had a thorough evaluation include negative CT PE (elevated D-dimer) and normal EKG. She was restarted on labetalol 100mg BID for migraine prophylaxis as well as hypertension. Patient has noticed headaches over the last three days primarily at night, not resolved with Tylenol. Seem to be different from her migraines. She woke up today with headache and body aches. She is breast feeding. Denies breast pain or engorgement. Some nipple discomfort. She denies significant pelvic or suprapubic pain. She states lochia/bleeding has lessoned but has stayed constant over the last 1-2 days. She does have some sharp pains in the vagina intermittently. She had perineal laceration and right labial lacerations repaired with vicryl. She denies purulent discharge. She was GBS negative. No history of abdominal surgeries. No cough, sore throat, congestion or sick contacts. Review of Systems Status of ROS: Reports: 10 or more systems reviewed and unremarkable except as noted in History and below Meds Home Medications and Allergies Home Medications ?Medication ?Instructions ?Recorded ?Confirmed ?Type albuterol sulfate 90 mcg/actuation 1 - 2 puff inhalation Q4H PRN 01/04/24 01/04/24 History aerosol inhaler (Ventolin HFA) wheezing cetirizine 10 mg tablet (24Hour 10 mg PO DAILY PRN 01/04/24 01/04/24 History Allergy) escitalopram oxalate 10 mg tablet 10 mg PO DAILY 01/04/24 01/04/24 History labetalol 100 mg tablet 100 mg PO BID 01/04/24 01/04/24 History vitamin no.167-folic acid 1 tab PO DAILY 01/04/24 01/04/24 History 400 mcg-dha 25 mg chewable tablet (One-A-Day ) Allergies Allergy/AdvReac Type Severity Reaction Status Date / Time Sulfa (Sulfonamide Allergy Intermediate Abdominal Verified 01/04/24 05:58 Antibiotics) Pain PFSH Active Problems (Updated 01/11/24 @ 22:57 by Alcira Kilpatrick MD) endometritis (Acute) ?O86.12 - Endometritis following delivery (ICD-10) Preeclampsia in period (Acute) BP 136-152/71-88. Elevation in ALT 54. Headaches and LE edema present. Diagnosis of pre-eclampsia without severe features. ?O14.95 - Unspecified pre-eclampsia, complicating the puerperium (ICD-10) fever (Acute) ?O86.4 - Pyrexia of unknown origin following delivery (ICD-10) (normal spontaneous vaginal delivery) (Acute) Patient had after spontaneous labor/SROM ?O80 - Encounter for full-term uncomplicated delivery (ICD-10) hypertension (Acute) ?O16.5 - Unspecified maternal hypertension, complicating the puerperium (ICD-10) Sinus tachycardia (Acute) HR 110-120's. EKG sinus tachycardia. CT PE run negative. BMP, pro-BNP WNL. Hgb 13.4 > 10.4 >9.9. Tachycardia resolved prior to discharge ?R00.0 - Tachycardia, unspecified (ICD-10) SROM (spontaneous rupture of membranes) (Resolved) Term (Resolved) ?Z34.90 - Encounter for supervision of normal , unspecified, unspecified trimester (ICD-10) Social History What is your current living situation?: I presently have a place to live Problems where you live: no known problems In the past 12 months, utilities in danger of being shut off: no In past 12 months, lack of transportation kept you from medical appts, meetings, work, or getting things needed for daily living: no In the past 12 mos, have been you worried that your food would run out before you had money to buy more?: never true In the past 12 mos, the food you bought just didn't last and you didn't have money to buy more?: never true Smoking Status: Never smoker How often does anyone, including family, friends and others, physically hurt you: never How often does anyone, including family, friends and others, insult or talk down to you: never How often does anyone, including family, friends and others, threaten you with harm: never How often does anyone, including family, friends and others, scream or curse at you: never Reproductive Health History : 1 Para: 1 History of multiple gestations: No History of ectopic pregnancies: No [employer]ER - Exam Physical Exam: Vital signs: Temp Pulse Resp BP Pulse Ox 99.3 F 104 H 20 136/72 99 01/11/24 21:40 01/11/24 22:14 01/11/24 21:40 01/11/24 22:14 01/11/24 17:11 Narrative: Gen: tearful, diaphoretic CV: RRR, no murmurs Resp: Regular rate, normal effort, clear to auscultation in all lung ayala Abdo: overall soft, some discomfort in deep suprapubic area (L>R) : lochia present heavy, laceration repairs healing well, no purulence, tender to the touch Ext: 1-2+ pitting edema in legs bilaterally (L>R). Some posterior calf tenderness. Trace edema in UE as well. [employer] TE[employer]ER - Results Labs Labs: Urine 01/11/24 Range/Units 19:58 Urine Color Yellow (Yellow) Urine Appearance Clear (Clear) Urine pH 7.5 (5.0-8.5) Ur Specific [place] 1.015 (1.000-1.030) Urine Protein Negative (Negative) Urine Glucose (UA) Negative (Negative) Imaging Venous US: Attestation: I have reviewed the pertinent imaging results. US - pelvis: Attestation: I have reviewed the pertinent imaging results. Labs Laboratory Tests 01/11/24 01/11/24 Range/Units 19:58 17:15 NT-Pro-B Natriuret Pep 70 pg/mL Urine Color Yellow (Yellow) Urine Appearance Clear (Clear) Urine pH 7.5 (5.0-8.5) Ur Specific [place] 1.015 (1.000-1.030) Urine Protein Negative (Negative) Urine Glucose (UA) Negative (Negative) Urine Ketones Negative (Negative) Urine Blood Trace-lysed A (Negative) Urine Nitrite Negative (Negative) Urine Bilirubin Negative (Negative) Urine Urobilinogen 0.2 (0.2-1.0) Ur Leukocyte Esterase Trace A (Negative) Urine RBC 0-2 (0-2) Urine WBC 2-5 (0-5) Ur Squamous Epith Cells Few (None-Few) Urine Bacteria None (None) Assessment and Plan Assessment and plan (1) endometritis: Status: Acute Assessment and Plan: Symptoms and workup most consistent with endometritis. WBC wnl for period though ANC has increased since 01/03. Fevers have improved. Tmax 101.7F in urgent care. Covid/flu/rsv negative. Differential included endometritis, laceration infection, retained products of conception, DVT, pyelonephritis. Pelvic exam without concern for laceration infection. UA overall normal. DVT US negative. Pelvic US with thickened heterogenous endometrium with multilobulated, mildly vascular, echogenic debris which could reflect clot versus retained products of conception. I spoke with Dr Gruber FORGING PRESS SETTER UP on-call who agreed with concern for endometritis, if failed to improve within 24hours on IV antibiotics, re-evaluation by chucking machine set up operator tool for possible D&C may be warranted. Ordered gentamicin 5mg/kg (500mg) q24h and clindamicin 900mg q8h. Plan to admit to inpatient as likely encompass 2 midnights. Repeat CBC, Cr, AST/ALT in AM. Patient will be ok to discharge if clinically stable and afebrile for 24 hours. (2) Preeclampsia in period: Problem comment: BP 136-152/71-88. Elevation in ALT 54. Headaches and LE edema present. Diagnosis of pre-eclampsia without severe features. Status: Acute Assessment and Plan: Labetalol increased to 200mg BID. Q4h vitals and pre-E assessment. Repeat AST/ALT, CBC and Cr in AM. (3) fever: Status: Acute Total Time Spent Total Time Spent: 85 minutes total spent in assessing patient, reviewing records, and coordinating care.
[2024-01-11] MEDS: CLINDAMYCIN 900 MG/50 ML-D5W 900 MG/50 ML PIGGYBACK 100 MG IVPB (23:28)
[2024-01-12] VITALS (9 sets, daily range): BP systolic 115–142; BP diastolic 68–83; PULSE 85–108; RESP 16–22; TEMP 36.6–39.1; O2SAT 96–98
[2024-01-12] MEDS: ESCITALOPRAM 10 MG TABLET PO (01:09)
[2024-01-12] MEDS: ACETAMINOPHEN 500 MG TABLET 1000 MG PO ×2 (03:34→18:17)
[2024-01-12] MEDS: CLINDAMYCIN 900 MG/50 ML-D5W 900 MG/50 ML PIGGYBACK 100 MG IVPB ×2 (07:36→15:46)
--- NOTE | 2024-01-12 07:51 | PM.FPPN ---
Progress Note: A&P Assessment and plan (1) endometritis: Status: Acute Assessment and Plan: Continue amp & gent as ordered. Anticipate antibiotics for at least 24 hrs. Case reviewed with Kitchen Lead on-call, Dr. Cason. Would consider D&C for possible retained products if patient continues to have fevers despite 24+ hrs of antibiotics. Will be NPO at midnight in the event that OR is necessary - can continue to have clears after that point in time. (2) Preeclampsia in period: Problem details: BP 136-152/71-88. Elevation in ALT 54 on admission. Headaches and LE edema present. Diagnosis of pre-eclampsia without severe features. Status: Acute Assessment and Plan: ALT improved today; blood pressures appropriate on increased dose of labetalol. - continue labetalol 200 mg BID (3) Tachycardia: Status: Acute Assessment and Plan: Ongoing tachycardia. CT PE normal. LE US negative. Sinus tachycardia per prior EKG. Pro-BNP WNL on admission. - Echo ordered to rule out other abnormality that could be contributing to tachycardia such as peripartum cardiomyopathy. (4) fever: Status: Acute Assessment and Plan: workup/management as above. - UCx pending Subjective Subjective Date Seen: 01/12/24 Interval history: Patient notes feeling tired this morning. Headache has improved. Eating and drinking well. Notices that her feet are painful due to swelling. Mild-moderate lochia without clots or purulence. Voiding without issue. No chest pain or dyspnea. Exam Narrative: Exam Narrative: Gen: alert, pleasant, NAD Resp: breathing comfortable on room air; CTA b/l Heart: RRR, no murmurs Abd: fundus is firm and below umbilicus; mildly tender to palpation over fundus to the R of midline Extremities: 1+ pitting edema b/l Const: Vital Signs, click to edit/add: Vital Signs - 24 hr 01/11/24 16:50 01/11/24 16:56 01/11/24 17:01 Temperature 101.1 F H Pulse Rate Pulse Rate [Pulse Oximeter] Respiratory Rate 18 Blood Pressure 142/86 H Blood Pressure [Le ft Arm] Pulse Oximetry 99 100 98 Oxygen Delivery Me thod 01/11/24 17:02 01/11/24 17:03 01/11/24 17:06 Temperature Pulse Rate 105 H Pulse Rate [Pulse Oximeter] Respiratory Rate Blood Pressure 148/83 H Blood Pressure [Le ft Arm] Pulse Oximetry 92 99 Oxygen Delivery Me thod 01/11/24 17:11 01/11/24 17:26 01/11/24 17:41 Temperature Pulse Rate 111 H 109 H Pulse Rate [Pulse Oximeter] Respiratory Rate Blood Pressure 136/86 142/88 H Blood Pressure [Le ft Arm] Pulse Oximetry 99 Oxygen Delivery Me thod 01/11/24 17:50 01/11/24 17:56 01/11/24 18:11 Temperature 99.3 F Pulse Rate 110 H 110 H Pulse Rate [Pulse Oximeter] Respiratory Rate Blood Pressure 144/71 H 149/77 H Blood Pressure [Le ft Arm] Pulse Oximetry Oxygen Delivery Me thod 01/11/24 18:26 01/11/24 18:51 01/11/24 18:56 Temperature Pulse Rate 103 H 104 H 97 Pulse Rate [Pulse Oximeter] Respiratory Rate Blood Pressure 152/80 H 141/80 H 135/76 Blood Pressure [Le ft Arm] Pulse Oximetry Oxygen Delivery Me thod 01/11/24 18:57 01/11/24 19:11 01/11/24 19:26 Temperature 98.5 F Pulse Rate 103 H 102 H Pulse Rate [Pulse Oximeter] Respiratory Rate Blood Pressure 136/79 128/71 Blood Pressure [Le ft Arm] Pulse Oximetry Oxygen Delivery Me thod 01/11/24 19:41 01/11/24 20:15 01/11/24 20:29 Temperature 99 F Pulse Rate 104 H 110 H Pulse Rate [Pulse Oximeter] Respiratory Rate 20 Blood Pressure 128/73 149/88 H Blood Pressure [Le ft Arm] Pulse Oximetry Oxygen Delivery Me thod 01/11/24 20:44 01/11/24 20:59 01/11/24 21:14 Temperature Pulse Rate 105 H 100 98 Pulse Rate [Pulse Oximeter] Respiratory Rate Blood Pressure 144/73 H 139/76 133/69 Blood Pressure [Le ft Arm] Pulse Oximetry Oxygen Delivery Me thod 01/11/24 21:29 01/11/24 21:40 01/11/24 21:44 Temperature 99.3 F Pulse Rate 113 H 106 H Pulse Rate [Pulse Oximeter] Respiratory Rate 20 Blood Pressure 132/70 142/74 H Blood Pressure [Le ft Arm] Pulse Oximetry Oxygen Delivery Me thod 01/11/24 21:59 01/11/24 22:14 01/11/24 23:34 Temperature Pulse Rate 102 H 104 H Pulse Rate [Pulse Oximeter] 98 Respiratory Rate 20 Blood Pressure 136/74 136/72 Blood Pressure [Le ft Arm] 144/89 H Pulse Oximetry 98 Oxygen Delivery Me thod Room Air 01/12/24 03:28 01/12/24 05:13 01/12/24 07:37 Temperature 102.3 F H 99 F 98.1 F Pulse Rate Pulse Rate [Pulse Oximeter] 108 H 87 Respiratory Rate 22 16 Blood Pressure Blood Pressure [Le ft Arm] 137/73 123/72 Pulse Oximetry 96 96 Oxygen Delivery Me thod Room Air Room Air
[2024-01-12 08:15] LABS: Hematocrit 32.9 % (33.0-51.0); Hemoglobin* 10.8 gm/dL (12.0-16.0); Mean Corpuscular HGB Conc 33 gm/dL (32-36); Mean Corpuscular Hemoglobin 32 pg (26-34); Mean Corpuscular Volume 97 fL (80-100); Platelet Count* 346 K/uL (140-440); Red Blood Count 3.38 m/uL (4.00-5.20); Slide Review Reflex No; White Blood Count* 8.06 K/uL (4.50-11.00)
[2024-01-12 08:20] LABS: Alanine Aminotransferase* 45 U/L (4-35); Aspartate Amino Transferase* 31 U/L (12-35); Creatinine* 0.6 mg/dL (0.5-1.5); Est. Creatinine Clearance* 143.28; Estimated Glomerular Filt Rate 124 ml/min
[2024-01-12] MEDS: LABETALOL HCL 100 MG TABLET 200 MG PO (09:15)
[2024-01-12] MEDS: IBUPROFEN 600 MG TABLET PO ×2 (12:59→19:43)
[2024-01-13] MEDS: CLINDAMYCIN 900 MG/50 ML-D5W 900 MG/50 ML PIGGYBACK 100 MG IVPB ×3 (00:01→16:01)
[2024-01-13] MEDS: GENTAMICIN 400 MG in 0.9 % SODIUM CHLORIDE 100 ml 100 ML 112.5 MG IVPB (00:40)
[2024-01-13 00:56] VITALS: BP 111/72; PULSE 85; RESP 18; TEMP 36.6; O2SAT 97
[2024-01-13 04:42] VITALS: BP 119/81; PULSE 81; RESP 18; TEMP 36.7; O2SAT 96
[2024-01-13 08:00] VITALS: BP 120/76; PULSE 80; RESP 16; TEMP 36.6; O2SAT 97
[2024-01-13 08:29] LABS: Hematocrit 33.3 % (33.0-51.0); Hemoglobin* 10.9 gm/dL (12.0-16.0); Mean Corpuscular HGB Conc 33 gm/dL (32-36); Mean Corpuscular Hemoglobin 32 pg (26-34); Mean Corpuscular Volume 97 fL (80-100); Platelet Count* 345 K/uL (140-440); Red Blood Count 3.43 m/uL (4.00-5.20); Slide Review Reflex No; White Blood Count* 6.37 K/uL (4.50-11.00)
[2024-01-13] MEDS: IBUPROFEN 600 MG TABLET PO (11:28)
[2024-01-13 12:30] VITALS: BP 115/73; PULSE 107; RESP 16; TEMP 36.7; O2SAT 97
[2024-01-13 16:04] VITALS: BP 113/74; PULSE 97; RESP 18; TEMP 36.6; O2SAT 97
--- NOTE | 2024-01-13 16:14 | P.DS_ITS ---
DS: Providers Provider Date Seen: 01/13/24 Date of admission: 01/11/24 22:28 Primary care physician: Jen Bee MD Admitting Clinician: Alcira Kilpatrick MD Consults: 01/11/24 21:52 Consult to Physician [CONS] Urgent Comment: fever, US c/f retained products Consulting Provider: Sharon Gruber Has provider been notified: Yes Attending Physician on discharge: Alcira Kilpatrick MD Date of Discharge: 01/13/24 DS: Diagnosis Discharge Diagnosis (1) endometritis: Status: Acute Problem details: She was treated with gentamicin and clindamycin for 48 hours after admission. She had improvement in labs and vitals. All normal prior to discharge. Recommend home monitoring of BP and pulse with PCP follow up in 2 days with . (2) Preeclampsia in period: Status: Acute Problem details: BP 136-152/71-88. Elevation in ALT 54 on admission. Headaches and LE edema present. Diagnosis of pre-eclampsia without severe features. All improved prior to discharge. Follow up with PCP in 2 days. (3) Tachycardia: Status: Acute (4) fever: Status: Acute Discharge Plan Discharge Disposition: Home, Self-Care Date of Admission: 01/11/24 22:28 Consulting Providers: Sharon Gruber Primary Care Provider: Jen Bee Discharge Medications: Continued albuterol sulfate [Ventolin HFA] 90 mcg/actuation HFA aerosol inhaler 1 - 2 puff INHALATION Q4H PRN (Reason: wheezing) cetirizine [24Hour Allergy] 10 mg tablet 10 mg PO DAILY PRN escitalopram oxalate 10 mg tablet 10 mg PO DAILY One-A-Day 400 mcg- 25 mg tablet,chewable 1 tab PO DAILY Changed labetalol 100 mg tablet 200 mg PO BID Qty: 120 0RF Discharge Orders: Discharge Order (Routine); Ordered 01/13/24 Ordered By: Danilo Winters Consulting provider completed their portion of the discharge: Yes Patient Education: Endometritis (GEN) Activity Level: Activity as Tolerated Discharge Diet: Regular Follow Up Appointments: Jen Bee MD [Primary Care Provider] - Forms: [employer] Info Instructions Hospital Course Labs Labs: Laboratory Tests 01/13/24 01/12/24 01/11/24 Range/Units 08:25 07:55 19:58 WBC 6.37 8.06 (4.50-11.00) K/uL RBC 3.43 L 3.38 L (4.00-5.20) m/uL Hgb 10.9 L 10.8 L (12.0-16.0) gm/dL Hct 33.3 32.9 L (33.0-51.0) % MCV 97 97 (80-100) fL MCH 32 32 (26-34) pg MCHC 33 33 (32-36) gm/dL RDW Coeff of Avinash (11.5-15.5) % Plt Count 345 346 (140-440) K/uL Neut % (Auto) (42.0-72.0) % Lymph % (Auto) (20-44) % Blair % (Auto) (0.0-11.0) % Eos % (Auto) (0.0-7.0) % Baso % (Auto) (0.0-3.0) % Neut # (Auto) (1.7-7.0) K/uL Lymph # (Auto) (0.90-2.90) K/uL Blair # (Auto) (0.00-0.90) K/UL Eos # (Auto) (0.00-0.50) K/uL Baso # (Auto) (0.00-0.30) K/uL Abs Immat Gran (auto) (0.00-0.30) K/uL Imm/Tot Granulo (auto) % BUN (5-24) mg/dL Creatinine 0.6 (0.5-1.5) mg/dL Estimated Creat Clear 143.28 Estimated GFR 124 ml/min AST 31 (12-35) U/L ALT 45 H (4-35) U/L NT-Pro-B Natriuret Pep pg/mL Urine Color Yellow (Yellow) Urine Appearance Clear (Clear) Urine pH 7.5 (5.0-8.5) Ur Specific [place] 1.015 (1.000-1.030) Urine Protein Negative (Negative) Urine Glucose (UA) Negative (Negative) Urine Ketones Negative (Negative) Urine Blood Trace-lysed A (Negative) Urine Nitrite Negative (Negative) Urine Bilirubin Negative (Negative) Urine Urobilinogen 0.2 (0.2-1.0) Ur Leukocyte Esterase Trace A (Negative) Urine RBC 0-2 (0-2) Urine WBC 2-5 (0-5) Ur Squamous Epith Cells Few (None-Few) Urine Bacteria None (None) SARS-CoV-2 (PCR) (Negative) Influenza Type A (PCR) (Negative) Influenza Type B (PCR) (Negative) RSV (PCR) (Negative) 01/11/24 Range/Units 17:15 WBC 13.49 H (4.50-11.00) K/uL RBC 3.32 L (4.00-5.20) m/uL Hgb 10.7 L (12.0-16.0) gm/dL Hct 32.4 L (33.0-51.0) % MCV 98 (80-100) fL MCH 32 (26-34) pg MCHC 33 (32-36) gm/dL RDW Coeff of Avinash 12.8 (11.5-15.5) % Plt Count 356 (140-440) K/uL Neut % (Auto) 83.2 H (42.0-72.0) % Lymph % (Auto) 7.6 L (20-44) % Blair % (Auto) 5.6 (0.0-11.0) % Eos % (Auto) 1.6 (0.0-7.0) % Baso % (Auto) 0.4 (0.0-3.0) % Neut # (Auto) 11.20 H (1.7-7.0) K/uL Lymph # (Auto) 1.00 (0.90-2.90) K/uL [place] # (Auto) 0.80 (0.00-0.90) K/UL Eos # (Auto) 0.21 (0.00-0.50) K/uL Baso # (Auto) 0.05 (0.00-0.30) K/uL Abs Immat Gran (auto) 0.21 (0.00-0.30) K/uL Imm/Tot Granulo (auto) 1.6 % BUN 8 (5-24) mg/dL Creatinine 0.6 (0.5-1.5) mg/dL Estimated Creat Clear Estimated GFR 124 ml/min AST 33 (12-35) U/L ALT 54 H (4-35) U/L NT-Pro-B Natriuret Pep 70 pg/mL Urine Color (Yellow) Urine Appearance (Clear) Urine pH (5.0-8.5) Ur Specific [place] (1.000-1.030) Urine Protein (Negative) Urine Glucose (UA) (Negative) Urine Ketones (Negative) Urine Blood (Negative) Urine Nitrite (Negative) Urine Bilirubin (Negative) Urine Urobilinogen (0.2-1.0) Ur Leukocyte Esterase (Negative) Urine RBC (0-2) Urine WBC (0-5) Ur Squamous Epith Cells (None-Few) Urine Bacteria (None) SARS-CoV-2 (PCR) Negative SARS-CoV-2 (Negative) Influenza Type A (PCR) Negative PCR FLU A (Negative) Influenza Type B (PCR) Negative PCR FLU B (Negative) RSV (PCR) Negative PCR RSV (Negative) OB Problem List Additional Plan (1) endometritis: Problem details: She was treated with gentamicin and clindamycin for 48 hours after admission. She had improvement in labs and vitals. All normal prior to discharge. Recommend home monitoring of BP and pulse with PCP follow up in 2 days with infant. Status: Acute (2) Preeclampsia in period: Problem details: BP 136-152/71-88. Elevation in ALT 54 on admission. Headaches and LE edema present. Diagnosis of pre-eclampsia without severe features. All improved prior to discharge. Follow up with PCP in 2 days. Status: Acute (3) Tachycardia: Status: Acute (4) fever: Status: Acute DS: Summary Vital Signs Vital Signs: Vital Signs Temp Pulse Resp BP Pulse Ox O2 Del Method 01/13/24 16:04 98 F 97 18 113/74 97 Room Air 01/13/24 12:30 98.1 F 107 H 16 115/73 97 Room Air 01/13/24 08:00 97.8 F 80 16 120/76 97 Room Air 01/13/24 04:42 98.0 F 81 18 119/81 96 Room Air 01/13/24 00:56 97.8 F 85 18 111/72 97 Room Air 01/12/24 22:40 97.9 F 85 18 118/76 98 Room Air 01/12/24 19:48 97.8 F 97 18 122/83 97 Room Air 01/12/24 16:34 98.0 F 86 16 128/83 97 Room Air Discharge Examination General appearance: alert and in no apparent distress Physical Examination findings: Gen: NAD ENT: MMM Neck: No lymphadenopathy CV: RRR, no murmurs Resp: CTA bilaterally Abd: Soft and nontender. Fundus is firm. Extremities: Minimal edema bilaterally. Skin: No rashes.
== END 2024-01-13 16:56 | disposition home or self-care (01) | DRG 776 ==
LOC: OB OUT 22:28 → OB 01-12 08:37
PROVIDERS: Surgery; Admitting Provider Student in an Organized Health Care Education/Training Program; PCP Family Medicine; Visit Provider Student in an Organized Health Care Education/Training Program
DX: O86.12 Endometritis following delivery (principal); O86.4 Pyrexia of unknown origin following delivery; O14.05 Mild to moderate pre-eclampsia, complicating the puerperium; O99.893 Other specified diseases and conditions complicating puerperium; R00.0 Tachycardia, unspecified
CPT/HCPCS: 36415; 76856; 81001; 82565; 83880; 84450; 84460; 84520; 85025; 85027; 87086; 87631; 93306; 93970; A9270; J0736; J1580